=== PATIENT | male | born 1995 | race Caucasian/White ===

== ENCOUNTER 2020-03-11 16:48 | Emergency (ER) | payer OTHER ==
[~2020-03-11] VITALS: Ht 160 cm; Wt 90.7 kg
[2020-03-11 17:05] VITALS: BP 151/98
[2020-03-11] MEDS ORDERED: ACETAMINOPHEN EXTRA STRENGTH 500 MG TAB PO ONE (17:30)
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
--- NOTE | 2020-03-11 17:37 | NUR ---
PT TO RADIOLOGY VIA WHEELCHAIR
[2020-03-11 18:37] VITALS: BP 132/89
--- NOTE | 2020-03-11 18:37 | NUR ---
Patient discharged with v/s stable. Written and verbal after care instructions given and explained. Patient verbalized understanding. Ambulatory with steady gait. All questions addressed prior to discharge. Advised to follow up with PMD.
== END 2020-03-11 18:37 | disposition home or self-care (01) ==
LOC: MED 16:48
DX: M54.5 Low back pain (principal); V49.9XXA Car occupant (driver) (passenger) injured in unspecified traffic accident, initial encounter; Y93.89 Activity, other specified; Y92.89 Other specified places as the place of occurrence of the external cause; Y99.8 Other external cause status
CPT/HCPCS: 72100; 99283